=== PATIENT | female | born 1960 | race Caucasian/White ===

== ENCOUNTER 2017-08-10 11:06 | Outpatient (CLI) | payer OTHER | END 2017-08-10 12:00 | disposition home or self-care (01) | LOC: NUCLEAR 11:06 | DX: M81.0 Age-related osteoporosis without current pathological fracture (principal) ==

== ENCOUNTER 2017-09-11 11:13 | Emergency (ER) | payer OTHER ==
[~2017-09-11] VITALS: Ht 165.1 cm; Wt 70.3 kg
[2017-09-11] MEDS ORDERED: SYNTHROID88 MCG (11:42)
== END 2017-09-11 17:24 | disposition home or self-care (01) ==
LOC: ER 11:13
DX: B34.9 Viral infection, unspecified (principal)

== ENCOUNTER 2018-03-25 06:45 | Day surgery (SDC) | payer OTHER ==
[~2018-03-25 06:45] MED LIST: ATORVASTAT PO; SYNTHROID88 MCG
== END 2018-03-25 18:00 | disposition home or self-care (01) ==
LOC: CIR.AMB 06:45
DX: N60.01 Solitary cyst of right breast (principal)

== ENCOUNTER 2018-08-24 10:53 | Outpatient (CLI) | payer OTHER | END 2018-08-24 11:04 | disposition home or self-care (01) | LOC: RAD 10:53 | DX: M25.571 Pain in right ankle and joints of right foot (principal) ==

== ENCOUNTER 2018-08-25 10:28 | Outpatient (CLI) | payer OTHER | END 2018-08-27 09:04 | disposition home or self-care (01) | LOC: RAD 10:28 | DX: M25.571 Pain in right ankle and joints of right foot (principal) ==

== ENCOUNTER 2018-11-11 06:23 | Outpatient (CLI) | payer OTHER | END 2018-11-11 06:31 | disposition home or self-care (01) | LOC: LAB 06:23 | DX: E56.1 Deficiency of vitamin K (principal) ==

== ENCOUNTER 2018-11-25 05:30 | Day surgery (SDC) | payer OTHER | END 2018-11-25 13:22 | disposition home or self-care (01) | LOC: CIR.AMB 05:30 | DX: N62 Hypertrophy of breast (principal) ==

== ENCOUNTER 2019-08-14 13:05 | Outpatient (CLI) | payer OTHER | END 2019-08-14 13:19 | disposition home or self-care (01) | LOC: NUCLEAR 13:05 | PROVIDERS: ATTEND Orthopaedic Surgery | DX: M81.0 Age-related osteoporosis without current pathological fracture (principal) ==

== ENCOUNTER 2019-08-28 07:17 | Outpatient (CLI) | payer OTHER | END 2019-08-28 07:31 | disposition home or self-care (01) | LOC: LAB 07:17 | PROVIDERS: ATTEND Orthopaedic Surgery | DX: N85.8 Other specified noninflammatory disorders of uterus (principal); E21.2 Other hyperparathyroidism; E88.89 Other specified metabolic disorders; M81.8 Other osteoporosis without current pathological fracture; E56.1 Deficiency of vitamin K; E03.8 Other specified hypothyroidism ==

== ENCOUNTER 2020-10-01 13:04 | Outpatient (CLI) | payer OTHER | END 2020-10-01 13:09 | disposition home or self-care (01) | LOC: NUCLEAR 13:04 | PROVIDERS: ATTEND Orthopaedic Surgery | DX: M81.0 Age-related osteoporosis without current pathological fracture (principal) ==

== ENCOUNTER → 2020-12-09 07:02 | Outpatient (CLI) | payer OTHER | END | disposition home or self-care (01) | LOC: LAB 07:02 | PROVIDERS: ATTEND Orthopaedic Surgery | DX: E21.2 Other hyperparathyroidism (principal); E55.9 Vitamin D deficiency, unspecified; M85.88 Other specified disorders of bone density and structure, other site; E88.89 Other specified metabolic disorders; M81.8 Other osteoporosis without current pathological fracture; E56.1 Deficiency of vitamin K; M54.59 Other low back pain ==